=== PATIENT | female | born 1995 | race Caucasian/White ===

== ENCOUNTER 2017-11-10 11:11 | Inpatient (IN) | payer OTHER ==
[~2017-11-10] VITALS: Ht 160 cm; Wt 54.4 kg
== END 2017-11-12 16:39 | disposition home or self-care (01) | DRG 812 ==
LOC: ER 11:11 → MEDJ 17:56
PROC: 30233N1 Transfusion of Nonautologous Red Blood Cells into Peripheral Vein, Percutaneous Approach (ICD-10-PCS; principal; 2017-11-10)
PROC: BG44ZZZ Ultrasonography of Thyroid Gland (ICD-10-PCS; 2017-11-10)
DX: D50.8 Other iron deficiency anemias (principal)

== ENCOUNTER → 2018-09-08 | Emergency (ER) | payer OTHER ==
[~2018-09-08] VITALS: Ht 157.5 cm; Wt 52.2 kg
== END | disposition left against medical advice (07) ==
LOC: ER 23:31
DX: Z53.20 Procedure and treatment not carried out because of patient's decision for unspecified reasons (principal)